=== PATIENT | female | born 1955 | race Caucasian/White ===

== ENCOUNTER → 2017-01-19 | Outpatient (CLI) | payer OTHER ==
[~2017-01-19] MED LIST: IOHEXOL 240 MG/ML 50ML VIAL. PO ONE; IOHEXOL 300 MG/ML 100ML VIAL. IV ONE
--- NOTE | 2017-01-19 11:05 | KCIC ---
PROCEDURE CT of the abdomen and pelvis with contrast HISTORY Left lower quadrant pain. History of hernia repair with mesh. Hernia repair 2004. Left lower quadrant pain for a few months. TECHNIQUE Intravenous and oral contrast given. Exposure: One or more of the following individualized dose reduction techniques were utilized for this exam: 1. Automated exposure control. 2. Adjustment of the mA and/or kV according to patient size. 3. Use of iterative reconstruction technique. COMPARISON None FINDINGS Mild linear atelectasis or scarring in the lung bases. No evidence of pneumoperitoneum. Liver unremarkable. Spleen unremarkable. Pancreas unremarkable. No adrenal mass. No significant abnormality of the kidneys. No calcified gallstone. Aorta non aneurysmal, and mildly tortuous. No significant lymph node enlargement. No bowel obstruction. Mild retained stool throughout the colon. There are scattered colonic diverticula. Mild wall thickening of the distal sigmoid colon, but no evidence of acute pericolonic inflammatory type change. Appendix is not clearly visualized. No significant ascites. Urinary bladder is unopacified but demonstrates no asymmetric wall thickening. Lumbar spondylosis, greatest at the lumbosacral junction. Lower thoracic spondylosis as well. Right convexity lumbar scoliosis. IMPRESSION 1. Mild colonic diverticulosis. Short segment of mild wall thickening of the distal sigmoid colon, difficult to exclude very mild diverticulitis though note there is no surrounding significant pericolonic inflammation or fluid. 2. Mild constipation. Electronically signed by: Osmel Gordon MD (January 19, 2017 11:03:49)
== END | disposition home or self-care (01) ==
LOC: KCIC CT 08:37
PROVIDERS: ATTEND Family Medicine
DX: K57.30 Diverticulosis of large intestine without perforation or abscess without bleeding (principal); K59.00 Constipation, unspecified
CPT/HCPCS: 74177; Q9966; Q9967

== ENCOUNTER → 2021-07-06 | Outpatient (CLI) | payer MEDICARE ==
--- NOTE | 2021-07-06 11:18 | KCIC ---
Examination: MRI left shoulder without contrast HISTORY: History of chronic left shoulder pain COMPARISON: None available TECHNIQUE: Multiplanar, multisequence MR imaging of the left shoulder performed without contrast FINDINGS: The long head of the biceps tendon within the bicipital groove. The attachment of the long head the b iceps tendon to the superior labral anchor grossly appears intact. The attachment of subscapularis te ndon grossly appears intact. There is a 1 cm focus of full-thickness tear identified in the supraspin atus tendon with extension of fluid into the subacromial subdeltoid bursa. Moderate increased T2 signal identified in the supraspinatus, infraspinatus tendons likely tendinosis . Moderate joint space loss within the brain parenchyma acromioclavicular joint. The acromion is type II. There is mild obscuration of fat in the rotator interval. The acromion is type II. Mild degenera tive changes acromioclavicular joint. There is moderate joint space loss identified in the joint like ly degenerative changes IMPRESSION: 1. Small focus of full-thickness tear identified in the supraspinatus tendon with extension of fluid into the subacromial subdeltoid bursa. 2. Moderate tendinosis rotator cuff. 3. Mild obscuration of fat in the rotator interval. Correlate for adhesive capsulitis. 4. Moderate degenerative changes glenohumeral joint, acromioclavicular joint. Electronically signed by: Sivakumar Hoffmann MD (07/06/2021 11:16 AM) [id number]
--- NOTE | 2021-07-06 11:55 | KCIC ---
INDICATION : Routine Screening. COMPARISON: June 2015 TECHNIQUE: Standard mammographic images were obtained of the bilateral breast including two-dimension al and three-dimensional images. CAD was utilized. FINDINGS: The breasts are scattered density. No definite suspicious mass. IMPRESSION: BI-RADS Category 2: Benign findings. The patient was placed into the recall system with a suggested recall date for follow up imaging. Mammography is the most sensitive method for finding small breast cancers, but it does not detect the m all and is not a substitute for careful clinical examination. A negative mammogram does not negate a clinically suspicious finding and should not result in delay in biopsying a clinically suspicious abnormality. Electronically signed by: Devin Car MD (07/06/2021 11:53 AM) [id number]
--- NOTE | 2021-07-06 18:04 | KCIC ---
Bone Densitometry History: Postmenopausal Findings: Bone Densitometry was performed with dual photon absorption of the lumbar spine and proximal femurs. Lumbar Spine: Bone density is 0.945 g/cm2 for L1-L4. T-score is -0.9. Z-score is 0.9. Left femoral neck: Bone density is 0.838 g/cm2. T-score is -0.8. Z-score is 0.9. IMPRESSION: Normal bone mineral density in the lumbar spine and left femoral neck. World Health Organization definition of osteoporosis and osteopenia for women: normal equal s T score at or above -1.0 standard deviations; osteopenia equals T score between -1.0 and -2.5 stand ritchie deviations; osteoporosis equals T score at or below -2.5 standard deviations. Electronically signed by: Nikki Chambers MD (07/06/2021 6:02 PM) [id number]
== END ==
LOC: KCIC MRI 09:17
PROVIDERS: ATTEND Family Medicine
DX: Z12.31 Encounter for screening mammogram for malignant neoplasm of breast (principal); M75.122 Complete rotator cuff tear or rupture of left shoulder, not specified as traumatic; M19.012 Primary osteoarthritis, left shoulder; M75.02 Adhesive capsulitis of left shoulder; N95.8 Other specified menopausal and perimenopausal disorders
CPT/HCPCS: 73221; 77063; 77067; 77080